=== PATIENT | female | born 1950 | race Caucasian/White ===

== ENCOUNTER 2020-05-29 06:36 | Observation (INO) ==
[~2020-05-29 06:36] MED LIST: ISOPROPYL ALCOHOL 480 APPL BTL MC ONE; MORPHINE SULFATE 15 MG TABLET.SA PO PRN; ROPIVACAINE HCL/PF 100 MG, EPINEPHrine 0.2 MG, KETOROLAC TROMETHAMINE 30 MG in NORMAL S... IJ PRN; TRANEXAMIC ACID 1,000 MG in NORMAL SALINE 100 ML IV PRN; ceFAZolin SODIUM 1 GM VIAL IV PRN; ceFAZolin SODIUM 1 GM VIAL ONE
[2020-05-29] MEDS: RINGER'S SOLUTION,LACTATED 1,000 ML IV PRN ×3 (07:14→09:25)
--- NOTE | 2020-05-29 07:21 | ANES ---
Anesthesia Pre Procedure Eval Vitals/Labs: Last Vital Signs Pulse 66 05/29/20 06:52 Resp 14 05/29/20 06:52 BP 116/59 05/29/20 06:52 Pulse Ox 97 05/29/20 06:52 HOME MEDICATIONS pregabalin 75 mg capsule 75 mg PO BID #60 cap 03/28/20 [Last Taken Unknown] Adele's wort 300 mg tablet 300 mg PO DAILY 04/25/20 [Last Taken Unknown] ginkgo biloba 60 mg capsule 60 mg PO DAILY 04/25/20 [Last Taken Unknown] lactobacillus combination no.8 3 billion cell capsule 3,000 mmu cells PO DAILY 04/25/20 [Last Taken Unknown] magnesium 200 mg tablet 200 mg PO DAILY 04/25/20 [Last Taken Unknown] psyllium husk 0.4 gram capsule 0.4 g PO DAILY 04/25/20 [Last Taken Unknown] turmeric 400 mg capsule 400 mg PO DAILY cap 04/25/20 [Last Taken 05/24/20] tramadol 50 mg tablet 50 mg PO BID PRN #60 tab 05/24/20 [Last Taken Unknown] sulfamethoxazole 800 mg-trimethoprim 160 mg tablet 1 tab PO BID 5 Days #10 tab 05/25/20 [Last Taken Unknown] Allergies/Adverse Reactions: Allergies Allergy/AdvReac Type Severity Reaction Status Date / Time No Known Allergies Allergy Verified 05/29/20 06:45 - Planned Procedure Planned Procedure: Right Total Hip Arthroplasty Medication List Reviewed:: Yes Allergies Verified: Yes Medical History (Last Reviewed 05/29/20 @ 07:20 by Karthik Santana CRNA) Sinus headache Onset Date: Unknown Varicose veins of lower extremity Onset Date: Unknown Constipation Onset Date: Unknown UTI (urinary tract infection) Onset Date: Unknown Surgical History (Last Reviewed 05/29/20 @ 07:20 by Karthik Santana CRNA) History of appendectomy Onset Date: Unknown History of delivery Onset Date: Unknown History of total abdominal hysterectomy Onset Date: Unknown still has left ovary - due to abnormal bleeding Family History (Last Reviewed 05/29/20 @ 07:20 by Karthik Santana CRNA) Brother A-fib Migraines Father Myocardial infarction Mother Myocardial infarction Lung cancer Constipation - Family Anesthesia History Family History:: no untoward family reactions to anesthesia, no familial bleeding tendencies, no family history of clotting disorders, no family history of premature - Airway/Neck/Teeth Within Normal Limits:: Yes Teeth Condition: intact Mallampatti Score: 3 Thyromental (T-M) distance: > 6 cm Mandibulo Hyoid distance: > 3 cm - Respiratory Respiratory Physical: lungs clear Smoking Status: Current every day smoker Discussed smoking cessation including day of surgery: Yes Sleep Apnea currently treated: No Sleep Apnea by current assessment: No Discussed Risks/Treatment of ULISES: No - Cardiovascular Tolerate Activity: Good Heart Sounds: S1 & S2 - Gastrointestinal NPO since: mn - Anesthesia Assessment and Plan ASA Class: PS, II Anesthesia Type Plan: Spinal
[2020-05-29] MEDS ORDERED: LIDOCAINE HCL 20 ML VIAL ONE (07:24)
[2020-05-29] MEDS ORDERED: ONDANSETRON HCL/PF 2 MG/ML VIAL ONE (07:25)
[2020-05-29] MEDS ORDERED: PROPOFOL VIAL IV ONE (07:25)
[2020-05-29] MEDS ORDERED: fentaNYL CITRATE/PF 50 MCG/ML AMPUL ONE (07:25)
[2020-05-29] MEDS ORDERED: ZOLPIDEM TARTRATE 5 MG TABLET PO PRN (09:21)
[2020-05-29] MEDS ORDERED: DEXTROSE 5%-LACTATED RINGERS 1,000 ML IV PRN (09:21)
[2020-05-29] MEDS ORDERED: oxyCODONE HCL/ACETAMINOPHEN 1 TAB TABLET PO PRN (09:21)
[2020-05-29] MEDS ORDERED: MORPHINE SULFATE 2 MG/ML DISP.SYRIN IV PRN (09:21)
[2020-05-29] MEDS ORDERED: diphenhydrAMINE HCL 50 MG/ML VIAL IV PRN (09:21)
[2020-05-29] MEDS ORDERED: MAGNESIUM HYDROXIDE 30 ML UDC PO PRN (09:21)
[2020-05-29] MEDS ORDERED: ONDANSETRON HCL/PF 2 MG/ML VIAL IV PRN (09:21)
[2020-05-29] MEDS ORDERED: MAG HYDROX/ALUMINUM HYD/SIMETH 30 ML UDC PO PRN (09:21)
[2020-05-29] MEDS ORDERED: ACETAMINOPHEN 500 MG TABLET PO PRN ×2 (09:21→12:08)
--- NOTE | 2020-05-29 09:27 | OR ---
Operative Report - Dictated Report Narrative: Date: 05/29/2020 Preoperative diagnosis: Right hip degenerative joint disease. Postoperative diagnosis: Right hip degenerative joint disease. Procedure: Right total hip arthroplasty. Surgeon: Jese Thorpe M.D. Manager [employer]: Ney Jang PA-C (provided an essential set of skilled, educated and assisted with transfer, positioning, prepping, draping, manipulation, traction, irrigation, suturing, and placement of dressings all of which cannot be performed by the available surgical crew) Anesthesia: Spinal and local periarticular joint injection. Complications: None Specimens: Bone. Estimated blood loss: 75 milliliters. Retained implants: Depuy Kendall size 1 femoral stem standard offset. Size 52 millimeter outside diameter 3-hole Funk Gription acetabular cup. 52 millimeter outside by 36 millimeter inside diameter highly cross-linked acetabular liner. 36 millimeter diameter +5 millimeter ceramic femoral head. Cancellous 6.5mm screws 25,30 millimeter lengths Indications: Mrs. Ryder is a 70-year-old female who has had longstanding right hip pain and arthrosis. This patient was followed in my clinic for period of time with significant complaints of right hip pain consistent with arthritic changes. She failed conservative measures including but not limited to activity modification, passage of time, medications, and other conservative measures. Patient wished to proceed with surgical treatment. The risks, benefits, and alternatives were discussed in clinic. The risks of , blood clots, bleeding, infection, nerve/tendon blood vessel/ injury, malposition of components, dislocation and/or instability of joint, intraoperative fracture, postoperative limited range of motion, persistent pain, failure of components, and need for additional procedures. Patient wished to proceed. Consent was obtained after answering all questions. Procedure: After marking the correct extremity on the floor, the patient was taken to the operating room. A timeout was performed. IV antibiotics consisting of Ancef were administered prior to the procedure. A spinal anesthetic was induced by anesthesia. A Mckeon catheter was inserted. The patient was then transitioned to a lateral position on a well-padded pegboard. An axillary roll was placed. The head was in neutral position. The non- operative down leg was well-padded with SCD and JOSE LUIS hose in place. The arms were supported and padded to protect from any undue pressure on the bony p rominences and nerves. A well-padded anterior and posterior pelvic and chest posts were secured in order to maintain a stable position of the pelvis. This was placed so that the pelvis was perpendicular to the floor. The body was in line with the pelvis. Once it was felt that we had protected all the bony prominences and the patient was well secured with a safety belt as well, the leg was pre-scrubbed with alcohol, prepped and draped in a standard sterile fashion. A standard anterior lateral hip incision was marked out over the greater trochanter. Ioban drapes were then placed. The skin incision was then made. Sharp dissection with a scalpel utilizing cautery for hemostasis was carried out down to the gluteus and iliotibial band fascia. This was split in line with the skin incision. The greater trochanter bursa was excised. The anterior and posterior margins of the abductor tendon were identified. The anterior 1/2-1/3 of the tendon was tagged and reflected off the greater trochanter leaving a sleeve of tendon for repair at the completion of the case. This exposed the underlying hip joint capsule. A limb length stitch was placed in the skin and referencedd off a anish on the greater trochanter for evaluation of intraoperative limb lengths. An inverted T-type capsulotomy was made extending this up to the brim of the acetabulum. Using Homans to assist with elevation of the soft tissues off the anterior, superior, and inferior aspects of the femoral neck, the hip was then placed in a figure 4 position and the femoral head was dislocated. With the leg in an externally rotated and adducted position, the cutting flag was utilized in order to anish for a standard femoral neck cut approximately a fingerbreadth above the level of the lesser trochanter. This was done with reference to pre-operative films and overall alignment. This was done while protecting the surrounding soft tissues with Homans. The femoral head was then removed and sized for guidance on preparation of the acetabulum. It was noted that there was loss of articular cartilage on both the femoral head and weightbearing portions of the acetabulum. We then returned the leg to the table and turned our attention to the acetabulum. While protecting the surrounding soft tissues, the labrum and remaining tissue in the fovea were excised using a scalpel and cautery. A series of reamers up to size 52 millimeter were utilized to prepare the acetabulum. The final reamer had good purchase and exposed the bleeding subchondral bone. The acetabulum was then thoroughly irrigated ensuring that all bony and cartilaginous materials were removed, and the final acetabular shell was impacted into place. This was placed in approximately 45 degrees of abduction and 10 degrees of anteversion utilizing the outrigger and body axis for alignment. It was noted that she had a fairly neutral acetabulums and a significantly anteverted femur and this was adjusted for with the placement of the cup. This had a good press fit. 2 6.5mm cancellous screws were placed in the superior posterior quadrant of the acetabulum. The shell was then thoroughly irrigated and the final polyethylene was impacted into place ensuring that it seated completely. This was then protected with a sponge while we returned our attention to the femur. With the leg in a figure 4 position, utilizing Homans for soft tissue protection, a box cutting osteotome, followed by Sarahey awl, followed by serial reamers and broaches were utilized in order to prepare the femur. It was found that a size 1 broach gave good axial and rotational stability. The calcar reamer was utilized in order to clean up the cut edges. The proximal femur was visualized to ensure that there were no signs of fracture. A series of heads and necks were trialed. It was found that a standard offset neck and a + 5 femoral head gave good overall stability. There was minimal longitudinal instability. With the leg in the position of sleep, the femoral head was well covered. Hip range of motion was able to reach full extension and external rotation to greater than 75 degrees prior to impingement along the posterior acetabulum. The hip was able to be flexed to greater than 90 degrees with internal rotation greater than 60 degrees prior to anterior impingement. The limb lengths were near equal based on comparison to the contralateral side and the prior placed limb length stitch. At this point it was felt these were the appropriately sized femoral components as well as neck and femoral head. The trial implants were removed. The femur was thoroughly irrigated. The final implants were impacted into place, and the hip was reduced. After ensuring that there was no damage to the proximal femur, the standard periarticular joint injection of ropivacaine, Toradol, and epinephrine were injected into the joint capsule and surrounding soft tissues. Anesthesia then administered intravenous tranexamic acid. The capsule was repaired with a single interrupted #1 Vicryl. The abductor tendon was repaired to the greater trochanter utilizing #5 Ethibond through drill holes. This was oversewn with #1 Vicryl. The fascia was closed with interrupted #1 Vicryl and strata fix barbed suture. The wounds were thoroughly irrigated as we closed in layers. The deep and subcutaneous fat layers were closed with 0 and 3-0 Vicryl respectively. The subcutaneous tissue was closed with a running 3-0 Vicryl and the Prineo dermabond dressing. All sponge, needle, blade, and instrument counts were correct prior to closing the wounds. Sterile dressings consisting of xeroform, 4 x 4's, and tape were applied. The patient was awoken and transferred to her hospital bed and then to the postanesthesia care unit in stable condition. Postoperative condition: The plan is to admit to the medical/surgical inpatient floor postoperatively. There will be a projected 1 to 3 day hospital stay. Postoperatively 24 hours of IV antibiotics, pain control, physical therapy, occupational therapy, and medical comanagement will be utilized. Patient will be weightbearing as tolerated with anterior hip precautions. Postoperative films will be obtained in the recovery room.
--- NOTE | 2020-05-29 09:37 | ANES ---
Post Anesthesia Discharge - Transfer of Care Transfer of Care handoff given to nurse: Yes - Discharge from PACU Discharge from PACU when meets criteria: Yes - Discharge to ASU Discharge to ASU-no complications/pt stable: Yes
[2020-05-29] MEDS: KETOROLAC TROMETHAMINE 15 MG/ML VIAL IV SCH ×3 (10:50→20:30)
--- NOTE | 2020-05-29 10:55 | ANES ---
Post Anesthesia Assessment - Vital Signs Vitals: Last Vital Signs Temp 36.4 C 05/29/20 09:45 Pulse 78 05/29/20 09:45 Resp 16 05/29/20 09:45 BP 111/51 05/29/20 09:45 Pulse Ox 97 05/29/20 09:45 Airway Patency: Normal - Mental Status Level Of Consciousness: Awake - Pain Level Pain Score: 0 - N/V Assessment Nausea/Vomiting Presence: None Dehydration:: No
[2020-05-29] MEDS: ceFAZolin SODIUM 1 GM in DEXTROSE 5 % IN WATER 100 ML IV SCH ×6 (12:38→22:47)
[2020-05-29] MEDS: oxyCODONE HCL/ACETAMINOPHEN 1 TAB TABLET PO PRN ×2 (18:45→22:48)
[2020-05-29] MEDS: MORPHINE SULFATE 15 MG TABLET.SA PO SCH (20:29)
[2020-05-29] MEDS: PREGABALIN 75 MG CAPSULE PO SCH (20:32)
[2020-05-29] MEDS ORDERED: SENNOSIDES/DOCUSATE SODIUM 1 TAB TABLET PO SCH (21:00)
[2020-05-30] MEDS: oxyCODONE HCL/ACETAMINOPHEN 1 TAB TABLET PO PRN ×2 (03:28→08:59)
[2020-05-30] MEDS: KETOROLAC TROMETHAMINE 15 MG/ML VIAL IV SCH ×3 (03:29→09:22)
[2020-05-30 06:31] LABS: Hematocrit 34.1 % (37.0-47.0); Hemoglobin 11.4 gm/dL (12.5-16.0); Mean Cell Volume 92.9 fl (78-100); Mean Corpuscular Hemoglobin 31.1 pg (27-31); Mean Corpuscular Hgb Conc 33.4 g/dl (32-36); Mean Platelet Volume 9.1 fl (8-12.5); Platelet Count 331 K/mm3 (150-450); Red Blood Count 3.67 M/mm3 (4.2-5.4); Red Cell Distribution Width 13.9 % (11.5-14.0)
[2020-05-30 06:37] LABS: Anion Gap 10.7 mmol/L (6.8-13.8); Calcium * 8.7 mg/dL (7.9-10.9); Estimated Creat Clear 55.6; Potassium 4.7 mmol/L (3.4-4.6)
[2020-05-30] MEDS ORDERED: ENOXAPARIN SODIUM 40 MG/0.4 ML SYRG SC SCH (08:22)
[2020-05-30] MEDS: PREGABALIN 75 MG CAPSULE PO SCH (08:44)
[2020-05-30] MEDS ORDERED: PSYLLIUM SEED 1 PACKET PACKET PO SCH (09:00)
[2020-05-30] MEDS ORDERED: MAGNESIUM OXIDE 400 MG TABLET PO SCH (09:00)
[2020-05-30] MEDS ORDERED: LACTOBACILLUS ACIDOPHILUS 1 EACH CAPSULE PO SCH (09:00)
[2020-05-30] MEDS: MORPHINE SULFATE 15 MG TABLET.SA PO SCH (09:22)
--- NOTE | 2020-05-30 11:46 | DS ---
(1) Status post right hip replacement Problem: Acute (2) Acute blood loss anemia Problem: Acute Date of Discharge:: 05/30/20 Hospital Course: Mrs. Ryder was admitted to the floor after undergoing right total hip arthroplasty. Tolerated this well. Was admitted to the floor postoperatively for 24 hours of IV antibiotics, pain control, medical comanagement, and occupational and physical therapy. OT and PT were consulted to assist with activities of daily living and ambulation. Was made weightbearing as tolerated with range of motion as tolerated utilizing anterior hip precautions. Pain was initially controlled with IV regimen. This was transitioned to oral once tolerating a by mouth intake. Was resumed on home diet and medications. Had a Mckeon catheter inserted and the operating room which was discontinued on postoperative day 1. A drain was placed intraoperatively into the knee which was discontinued on postoperative day 1. Lovenox SCD and JOSE LUIS hose were utilized for DVT prophylaxis. Vital signs remained stable to the hospital course. Serial labs were obtained which showed a final hemoglobin of 11.4 grams down from 14.7 g preoperatively. BMP was reviewed and was stable. Physical examination throughout the hospital course showed an extremity that had sensation that was intact to light touch, palpable pulses, a benign wound, motor intact to the toes, ankle, and knee. Once an oral pain regimen was tolerated and physical therapy goals were met, it was felt that they were stable for discharge to home. Instructions: Continue with weightbearing as tolerated and range of motion as tolerated utilizing anterior hip precautions. It is OK to shower on the wound if it is not draining. If you note any drainage or for comfort you can cover with dry gauze and tape. Change every 2-3 days as needed. Continue with physical therapy. Resume home diet. Report any fever over 101.5 Fahrenheit, uncontrolled pain, increased drainage, foul odor of drainage, new or increased calf pain or shortness of breath, or any other significant complaints. A 325mg dialy aspirin will be started after finishing anticoagulation if not allergic. Continue with JOSE LUIS hose on the operative extremity until instructed otherwise. No driving until instructed otherwise. Follow up in approximately 10-14 days. Procedures Performed: see notes below List Procedures: Right total hip arthroplasty Results and Findings: Lab Pending Results 05/30/20 06:26: WBC 8.0, RBC 3.67 L, Hgb 11.4 L, Hct 34.1 L, MCV 92.9, MCH 31.1 H, MCHC 33.4, RDW 13.9, Plt Count 331, MPV 9.1 05/30/20 06:26: Sodium 137, Plasma Sodium 137, Potassium 4.7 H, Chloride 103, Carbon Dioxide 28.0, Anion Gap 10.7, BUN 15, Creatinine 0.79, Est GFR (Non-Af Amer) 77, BUN/Creatinine Ratio 19.0, Random Glucose 103, Calcium 8.7 Discharge Location: Home Disposition: Home self-care Condition: Good Discharge Activity: Activity as tolerated, Weight bearing, Other - With wheeled walker utilizing anterior hip precautions Discharge Diet: General/regular food Referrals: Lonny Hare DO [Primary Care Provider] - Jese Thorpe MD [Staff Physician] - 06/13/20 1:15 pm Problem Oriented Discharge Instructions to Patient/Family: Total Hip Replacement, [id number] Additional Patient Instructions (free text): Physical Therapy scheduled at [facility] on 05-31-2020 at 2:30pm. Post-op follow-up with Dr. Thorpe scheduled on 06-13-2020 at 1:15pm. Prescriptions (Any new or edited meds): Enoxaparin Sodium [Lovenox] 40 mg SC Q24H #7 disp.syrin Transmission Status: Pending to [place], [place] Morphine Sulfate [Ms Contin] 15 mg PO Q12H #14 tablet.sa Transmission Status: Received by [place], [place] oxyCODONE HCL/ACETAMINOPHEN [Percocet 5 MG/325 MG] 1 tab PO Q4H PRN #56 tab PRN Reason: Moderate Pain (Pain Scale 4-6) Transmission Status: Received by [place], [place] Sennosides/Docusate Sodium [Senokot-S] 2 tab PO HS #30 tab Transmission Status: Pending to [place], [place] Complete Home Medications List: Complete Home Medication List: pregabalin 75 mg capsule 75 mg PO BID #60 cap 03/28/20 Adele's wort 300 mg tablet 300 mg PO DAILY 04/25/20 ginkgo biloba 60 mg capsule 60 mg PO DAILY 04/25/20 lactobacillus combination no.8 3 billion cell capsule 3,000 mmu cells PO DAILY 04/25/20 magnesium 200 mg tablet 200 mg PO DAILY 04/25/20 psyllium husk 0.4 gram capsule 0.4 g PO DAILY 04/25/20 turmeric 400 mg capsule 400 mg PO DAILY cap 04/25/20 sulfamethoxazole 800 mg-trimethoprim 160 mg tablet 1 tab PO BID 5 Days #10 tab 05/25/20 Enoxaparin Sodium [Lovenox] 40 mg SC Q24H #7 disp.syrin 05/30/20 Morphine Sulfate [Ms Contin] 15 mg PO Q12H #14 tablet.sa 05/30/20 Sennosides/Docusate Sodium [Senokot-S] 2 tab PO HS #30 tab 05/30/20 oxyCODONE HCL/ACETAMINOPHEN [Percocet 5 MG/325 MG] 1 tab PO Q4H PRN #56 tab 05/30/20 Amb Orders for Discharge: PT Evaluation and Treatment* Facility: [facility], Location: Rehabilitation Services Forms: Patient Portal Registration
[2020-05-30 13:11] VITALS: BP 91/48
== END 2020-05-30 13:58 | disposition home or self-care (01) ==
LOC: SUR 06:36 → MS 06:36
PROVIDERS: ADMIT Orthopaedic Surgery; ATTEND Orthopaedic Surgery
CPT/HCPCS: 36415; 73502; 80048; 85027; 96365; 96366; 96375; 96376; 97116; 97161; 97165; 97535; G0378; J2405